=== PATIENT | female | born 1935 | race African-American/Black ===

== ENCOUNTER 2024-04-18 04:00 | Day surgery (SDC) | payer OTHER ==
[2024-04-16 11:35] VITALS: BMI 20.5
[2024-04-18] MEDS ORDERED: ETOMIDATE 20 MG/10 ML VIAL IVPUSH ONE (07:50)
[2024-04-18] MEDS ORDERED: SUCCINYLCHOLINE CHLORIDE 200 MG/10 ML SYRINGE ONE (07:51)
[2024-04-18] MEDS ORDERED: PROPOFOL 20 ML ONE ×2 (07:51→08:30)
[2024-04-18] MEDS ORDERED: LIDOCAINE HCL 1%, 10 MG/ML (20ML VIAL) ONE (07:52)
[2024-04-18] MEDS ORDERED: ROCURONIUM BROMIDE 50 MG/5 ML SYRINGE ONE (08:07)
[2024-04-18] MEDS: ceFAZolin SODIUM 1 GM VIAL IVPB ONE (08:15)
[2024-04-18] MEDS ORDERED: ACETAMINOPHEN INJECTION 100 ML ONE (08:35)
[2024-04-18] MEDS ORDERED: PHENYLEPHRINE HCL 10 MG/1 ML SINGLE DOSE VIAL ONE (08:52)
[2024-04-18] MEDS: LIDOCAINE HCL 1%, 10 MG/ML (20ML VIAL) INF ONE (09:36)
[2024-04-18] MEDS ORDERED: SUGAMMADEX SODIUM 200 MG/2 ML VIAL ONE ×2 (09:45→10:00)
[2024-04-18] MEDS: LACTATED RINGERS SOLUTION 1,000 ML IV SCH ×2 (10:10→16:27)
[2024-04-18] MEDS ORDERED: oxyCODONE HCL 5 MG TABLET PO PRN ×2 (10:14→10:55)
[2024-04-18] MEDS: HYDROCORTISONE 0.5% TOPICAL CREAM 30 GM TUBE TP PRN (11:17)
[2024-04-18] MEDS ORDERED: POLYETHYLENE GLYCOL (HEALTHYLAX) 3350 17 GM PACKET PO PRN (13:34)
[2024-04-18] MEDS: ACETAMINOPHEN 325 MG TABLET (FP) PO SCH (14:00)
[2024-04-18] MEDS ORDERED: ACETAMINOPHEN 325 MG TABLET (FP) PO SCH ×2 (14:00)
[2024-04-18] MEDS: GABAPENTIN 100 MG CAPSULE PO SCH ×2 (16:28→16:57)
[2024-04-18 18:54] LABS: HEMATOCRIT 34.4 % (32.4-45.2); HEMOGLOBIN 11.5 GM/dL (10.7-15.3); MCH 28.6 pg (25.7-33.7); MCHC 33.5 g/dl (32.0-36.0); MEAN CELL VOLUME 85.4 fl (80-96); MEAN PLT VOLUME 8.1 fl (7.5-11.1); PLATELET COUNT 244 10^3/uL (134-434); RBC 4.03 M/mm3 (3.60-5.2); RDW 15.7 % (11.6-15.6); WHITE BLOOD COUNT 6.3 K/mm3 (4.0-10.0)
[2024-04-18 19:14] LABS: BLOOD UREA NITROGEN 13.9 mg/dL (7-18); MAGNESIUM 1.5 mg/dL (1.8-2.4)
[2024-04-18 19:15] LABS: POTASSIUM 4.2 mmol/L (3.5-5.1)
[2024-04-18 19:19] LABS: PHOSPHOROUS 3.2 mg/dL (2.5-4.9)
[2024-04-18] MEDS ORDERED: ATORVASTATIN CA 10 MG TABLET (FP) PO SCH (22:00)
[2024-04-18] MEDS: ATORVASTATIN CA 10 MG TABLET (FP) PO SCH (23:24)
[2024-04-19 08:05] VITALS: BP 112/74; PULSE 72; RESP 18; TEMP 97.2
[2024-04-19] MEDS ORDERED: HYDROCHLOROTHIAZIDE 12.5 MG CAPSULE (FP) PO SCH (10:00)
[2024-04-19] MEDS ORDERED: LOSARTAN POTASSIUM 50 MG TABLET PO SCH (10:00)
[2024-04-19] MEDS: HYDROCHLOROTHIAZIDE 12.5 MG CAPSULE (FP) PO SCH (10:42)
[2024-04-19] MEDS: LOSARTAN POTASSIUM 50 MG TABLET PO SCH (10:42)
== END 2024-04-19 14:22 | disposition home or self-care (01) ==
LOC: SUATTDRO 04:00 → JASUSAT 04:00 → JASU-SURG 04:00 → J4S 16:13 → JASUSAT 04-19 14:22
PROVIDERS: ATTEND Internal Medicine
PROC: 0HTT0ZZ Resection of Right Breast, Open Approach (ICD-10-PCS; principal; 2024-04-18 08:00)
DX: C50.911 Malignant neoplasm of unspecified site of right female breast (principal)
CPT/HCPCS: 36415; 80048; 83735; 84100; 85027; 86850; 86900; 86901; 88309-TC; 88341-TC; 88342-TC; 94760; J0131